=== PATIENT | male | born 1950 | race Caucasian/White ===

== ENCOUNTER 2017-07-22 10:04 | Emergency (ER) | payer OTHER ==
[~2017-07-22] VITALS: Ht 172.7 cm; Wt 90.0 kg
[~2017-07-22 10:04] MED LIST: AMLO5 PO; ASPI325T PO; ATOR80TA PO; DUONI INH; LISI20 PO; METF500 PO; METO25 PO; POLY119S PO
[2017-07-22 10:08] VITALS: BP 152/88; PULSE 70; RESP 18; TEMP 98.1; O2SAT 97
--- NOTE | 2017-07-22 10:23 | PD ---
HPI Chief Complaint: Abnormal Results Time Seen by Provider: 10:19 Travel History International Travel<30 days: No Contact w/Intl Traveler<30days: No Traveled to known affect area: No History of Present Illness HPI 66-year-old male patient with history of hypertension, COPD, previous stroke, presents to the ER today because he states that he has been constipated and not able to make any bowel movements for about a week, feels like his abdomen is distended, but denies any nausea and vomiting. He had been seen by GI 2 days ago and had lab work done and was told to come to the ER yesterday because his potassium was high and his white blood cell count was high. He denies any fevers, abdominal pain, or any other issues. Modifying Factors: None Associated Signs & Symptoms: Constipated, abdominal distention, elevated potassium and white blood cell count Risk Factors: None PFSH Past Medical History Autoimmune Disease: No Heart Rhythm Problems: No Cancer: No Cardiovascular Problems: No High Cholesterol: Yes Chest Pain: No Congestive Heart Failure: No Cerebrovascular Accident: Yes (2013 CVA) Diabetes: Yes Endocrine: Yes Genitourinary: No Hepatitis: No Hiatal Hernia: No Hypertension: Yes Immune Disorder: No Musculoskeletal: No Neurologic: Yes (STROKE 04/19/2014) Psychiatric: No Reproductive: No Respiratory: Yes (COPD) Thyroid Disease: No Past Surgical History Abdominal Surgery: No AICD: No Cardiac Surgery: No Ear Surgery: No Endocrine Surgery: No Eye Surgery: No Genitourinary Surgery: Yes (PRIAPRISM SURGERY 06/2014) Gynecologic Surgery: No Joint Replacement: No Oral Surgery: Yes (TEETH EXTRACTION) Pacemaker: No Thoracic Surgery: No Other Surgery: Yes (SPLENECTOMY) Social History Alcohol Use: No Tobacco Use: Yes Substance Use: No Allergies-Medications (Allergen,Severity, Reaction): Coded Allergies: No Known Allergies (Unverified Allergy, Unknown, 07/22/17) Reported Meds & Prescriptions Reported Meds & Active Scripts Active Miralax 119 Gm Bottle (Polyethylene Glycol) 119 Gm Powd 17 Gm PO DAILY 7 Days 17 GRAMS = 1 TABLESPOON DISSOLVED IN 4 TO 8 OUNCES OF BEVERAGE Norvasc (Amlodipine Besylate) 5 Mg Tab 5 Mg PO BID 30 Days Resp: Albuterol/Ipratropium 2.5 Mg/0.5 Mg (Albuterol/Ipratropium) 1 Amp Nebu 1 Amp INH QID-RT 30 Days Prinivil 20 mg (Lisinopril) 20 Mg Tab 20 Mg PO Q12 30 Days Metoprolol Tartrate 25 mg (Metoprolol Tartrate) 25 Mg Tab 25 Mg PO Q12 30 Days Reported Aspirin 325 Mg Tab (Aspirin) 325 Mg Tab 650 Mg PO DAILY Atorvastatin 80 mg (Atorvastatin Calcium) 80 Mg Tab 1 Tab PO HS Glucophage 500 mg (Metformin HCl) 500 Mg Tab 1,000 Mg PO DAILY@1700 Review of Systems Except as stated in HPI: all other systems reviewed are Neg Physical Exam Narrative GENERAL: Well-developed elderly white male patient currently in mild distress. Awake and oriented 3. SKIN: Focused skin assessment warm/dry. HEAD: Atraumatic. Normocephalic. EYES: Pupils equal and round. No scleral icterus. No injection or drainage. ENT: No nasal bleeding or discharge. Mucous membranes pink and moist. NECK: Trachea midline. No JVD. Supple. CARDIOVASCULAR: Regular rate and rhythm. No murmur appreciated. RESPIRATORY: No accessory muscle use. Clear to auscultation. Breath sounds equal bilaterally. GASTROINTESTINAL: Abdomen soft, non-tender, mildly distended. Hepatic and splenic margins not palpable. MUSCULOSKELETAL: No obvious deformities. No clubbing. No cyanosis. No edema. NEUROLOGICAL: Awake and alert. No obvious cranial nerve deficits. Motor grossly within normal limits. Normal speech. PSYCHIATRIC: Appropriate mood and affect; insight and judgment normal. Data Data Last Documented VS Vital Signs Date Time Temp Pulse Resp B/P (MAP) Pulse Ox O2 Delivery O2 Flow Rate FiO2 07/22/17 12:23 65 17 149/80 (103) 100 Room Air 07/22/17 10:08 98.1 Orders Orders Electrocardiogram (07/22/17 10:15) Complete Blood Count With Diff (07/22/17 10:15) Comprehensive Metabolic Panel (07/22/17 10:15) Lactic Acid Sepsis Protocol (07/22/17 10:15) Magnesium (Mg) (07/22/17 10:15) Blood Culture (07/22/17 10:15) Blood Glucose (07/22/17 10:15) Ecg Monitoring (07/22/17 10:15) Iv Access Insert/Monitor (07/22/17 10:15) Oximetry (07/22/17 10:15) Oxygen Administration (07/22/17 10:15) Abdomen, Flat & Upright (07/22/17 10:19) Ct Abd/Pel W Iv Contrast(Rout) (07/22/17 11:35) Iohexol 350 Inj (Omnipaque 350 Inj) (07/22/17 12:32) Sodium Chlorid 0.9% 500 Ml Inj (Ns 500 M (07/22/17 13:00) Labs Laboratory Tests Test 07/22/17 10:30 White Blood Count 13.0 TH/MM3 Red Blood Count 4.95 MIL/MM3 Hemoglobin 14.9 GM/DL Hematocrit 44.1 % Mean Corpuscular Volume 89.2 FL Mean Corpuscular Hemoglobin 30.2 PG Mean Corpuscular Hemoglobin Concent 33.8 % Red Cell Distribution Width 14.0 % Platelet Count 529 TH/MM3 Mean Platelet Volume 7.8 FL Neutrophils (%) (Auto) 64.9 % Lymphocytes (%) (Auto) 25.5 % Monocytes (%) (Auto) 7.2 % Eosinophils (%) (Auto) 1.8 % Basophils (%) (Auto) 0.6 % Neutrophils # (Auto) 8.4 TH/MM3 Lymphocytes # (Auto) 3.3 TH/MM3 Monocytes # (Auto) 0.9 TH/MM3 Eosinophils # (Auto) 0.2 TH/MM3 Basophils # (Auto) 0.1 TH/MM3 CBC Comment DIFF FINAL Differential Comment Blood Urea Nitrogen 8 MG/DL Creatinine 1.00 MG/DL Random Glucose 204 MG/DL Total Protein 8.0 GM/DL Albumin 4.3 GM/DL Calcium Level 9.1 MG/DL Magnesium Level 2.1 MG/DL Alkaline Phosphatase 95 U/L Aspartate Amino Transf (AST/SGOT) 21 U/L Alanine Aminotransferase (ALT/SGPT) 37 U/L Total Bilirubin 0.4 MG/DL Sodium Level 132 MEQ/L Potassium Level 4.4 MEQ/L Chloride Level 101 MEQ/L Carbon Dioxide Level 24.5 MEQ/L Anion Gap 7 MEQ/L Estimat Glomerular Filtration Rate 74 ML/MIN Lactic Acid Level 2.0 mmol/L MDM Medical Decision Making Medical Screen Exam Complete: Yes Emergency Medical Condition: Yes Medical Record Reviewed: Yes Interpretation(s) Laboratory Tests Test 07/22/17 10:30 White Blood Count 13.0 TH/MM3 (4.0-11.0) Platelet Count 529 TH/MM3 (150-450) Neutrophils # (Auto) 8.4 TH/MM3 (1.8-7.7) Random Glucose 204 MG/DL (74-106) Sodium Level 132 MEQ/L (136-145) Estimat Glomerular Filtration Rate 74 ML/MIN (>89) Last 24 hours Impressions Abdomen X-Ray 07/22/17 1019 Signed Impressions: Service Date/Time: Saturday, July 22, 2017 10:57 - CONCLUSION: No dilated loops of small or large bowel. Dieter Salgado MD Differential Diagnosis Constipation versus obstruction versus ileus versus dehydration versus metabolic issues Narrative Course CAT scan reveals signs of colitis but was otherwise unremarkable. Colonoscopy is suggested as follow-up. Lab work did not indicate high potassium. Renal function was fairly unremarkable. At this point, my plan would be to release him with follow-up to GI. Return for any worsening in symptoms as necessary. The plan has been discussed with him he states understanding. Diagnosis Primary Impression: Colitis Disposition: DISCHARGE HOME Condition: Stable Basia Yanes MD Jul 22, 2017 10:23
[2017-07-22 10:41] VITALS: O2SAT 96
[2017-07-22 10:55] LABS: AUTOMATED NEUTROPHIL # 8.4 TH/MM3 (1.8-7.7); BASOPHIL # 0.1 TH/MM3 (0-0.2); BASOPHIL % 0.6 % (0.0-2.0); EOSINOPHIL # 0.2 TH/MM3 (0-0.4); EOSINOPHIL % 1.8 % (0.0-4.0); HEMATOCRIT 44.1 % (39.0-51.0); HEMOGLOBIN 14.9 GM/DL (13.0-17.0); LYMPH % 25.5 % (9.0-44.0); LYMPHOCYTE # 3.3 TH/MM3 (1.0-4.8); MEAN CELL VOLUME 89.2 FL (80.0-100.0); MEAN CORPUSCULAR HEMOGLOBIN 30.2 PG (27.0-34.0); MEAN CORPUSCULAR HGB CONC 33.8 % (32.0-36.0); MEAN PLATELET VOLUME 7.8 FL (7.0-11.0); MONO % 7.2 % (0.0-8.0); MONOCYTE # 0.9 TH/MM3 (0-0.9); NEUT % 64.9 % (16.0-70.0); PLATELET COUNT 529 TH/MM3 (150-450); RED BLOOD COUNT 4.95 MIL/MM3 (4.50-5.90)
[2017-07-22 11:15] LABS: ALBUMIN 4.3 GM/DL (3.4-5.0); AST (GOT) 21 U/L (15-37); BICARBONATE 24.5 MEQ/L (21.0-32.0); BLOOD UREA NITROGEN 8 MG/DL (7-18); CALCIUM 9.1 MG/DL (8.5-10.1); CHLORIDE 101 MEQ/L (98-107); GLOMERULAR FILTRATION RATE 74 ML/MIN (>89); GLUCOSE,RANDOM 204 MG/DL (74-106); MAGNESIUM 2.1 MG/DL (1.5-2.5); SODIUM (NA) 132 MEQ/L (136-145)
[2017-07-22 11:16] LABS: ALT (GPT) 37 U/L (12-78)
[2017-07-22 11:18] LABS: ALKALINE PHOSPHATASE 95 U/L (45-117); TOTAL BILIRUBIN ADULT 0.4 MG/DL (0.2-1.0)
--- NOTE | 2017-07-22 11:31 | RADRPT ---
EXAM DATE/TIME: 07/22/2017 10:57 [facility] COMPARISON: No previous studies available for comparison. INDICATIONS : Constipation with high potassium level. MEDICAL HISTORY : None. SURGICAL HISTORY : Splenectomy. ENCOUNTER: Initial ACUITY: 1 week PAIN SCORE: 0/10 LOCATION: Bilateral abdomen FINDINGS: Supine and upright views of the abdomen were performed. The abdominal bowel gas pattern is normal. No air fluid levels are seen. No abnormal masses, calcifications, or organomegaly is seen. The visu alized lower lungs are clear. No evidence of free intraperitoneal gas. The osseous structures are u nremarkable. CONCLUSION: No dilated loops of small or large bowel. Dieter Salgado MD on July 22, 2017 at 11:28 Board Certified Radiologist. This report was verified electronically.
[2017-07-22 12:23] VITALS: BP 149/80; PULSE 65; RESP 17; O2SAT 100
[2017-07-22] MEDS ORDERED: IOHEXOL 350 MG/ML 10 ML VIAL (for RAD DIAG) IVCONTRAST ONE (12:32)
--- NOTE | 2017-07-22 12:43 | RADRPT ---
EXAM DATE/TIME: 07/22/2017 12:13 [facility] COMPARISON: No previous studies available for comparison. INDICATIONS : Constipation and abdominal distention for 1 week. IV CONTRAST: 96 cc Omnipaque 350 (iohexol) IV ORAL CONTRAST: No oral contrast ingested. RADIATION DOSE: 14.71 CTDIvol (mGy) MEDICAL HISTORY : Cerebrovascular disease. Hypertension. SURGICAL HISTORY : Splenectomy. ENCOUNTER: Initial ACUITY: 1 week PAIN SCALE: 0/10 LOCATION: anterior TECHNIQUE: Volumetric scanning of the abdomen and pelvis was performed. Using automated exposure control and ad justment of the mA and/or kV according to patient size, radiation dose was kept as low as reasonably achievable to obtain optimal diagnostic quality images. DICOM format image data is available electro nically for review and comparison. FINDINGS: LOWER LUNGS: The visualized lower lungs are clear. LIVER: Homogeneous fatty density without lesion. There is no dilation of the biliary tree. No calcified ga llstones. SPLEEN: Normal size without lesion. PANCREAS: Within normal limits. KIDNEYS: Normal in size and shape. There is no mass, stone or hydronephrosis. ADRENAL GLANDS: Within normal limits. VASCULAR: Atherosclerotic abdominal aorta with patchy mural thrombus. The vessel is mildly aneurysmal at approx imately 4.2 cm. Common iliac arteries measure 18 mm on the right and 17 mm on the last. No evidence o f leak or impending rupture. BOWEL/MESENTERY: There is mild colitis of the left side of the colon beginning at the level of the splenic flexure and extending to the mid sigmoid. No perceptible mass but there are numerous adjacent lymph nodes in the left abdomen measuring up to 12 mm in greatest short axis dimension. These appear pathologic. ABDOMINAL WALL: Within normal limits. RETROPERITONEUM: There is no lymphadenopathy. BLADDER: No wall thickening or mass. REPRODUCTIVE: Within normal limits. INGUINAL: There is no lymphadenopathy or hernia. MUSCULOSKELETAL: Within normal limits for patient age. CONCLUSION: 1. Mild long segment colitis of the left side of the colon as above. This is nonspecific but given th e adjacent lymphadenopathy, presumably infectious or inflammatory. No mass lesion demonstrated and gi jame the fairly diffuse nature of the inflammatory changes, neoplasm/malignancy considered unlikely bu t colonoscopy is suggested when clinically feasible if not done recently. There are some scattered di verticula but the features are not typical of diverticulitis. 2. Fatty liver. 3. Atherosclerotic and aneurysmal abdominal aorta. The vessel measures up to 4.2 cm. Zain Myers MD on July 22, 2017 at 12:35 Board Certified Radiologist. This report was verified electronically.
[2017-07-22] MEDS ORDERED: SODIUM CHLORID 0.9% 500 ML INJ 500 ML IV ONE (13:00)
[2017-07-22 13:40] VITALS: BP 141/62
--- NOTE | 2017-07-23 17:17 | EKG ---
Date Performed: 07/22/2017 Time Performed: 12:05:10 PTAGE: 66 years EKG: SINUS BRADYCARDIA WITH FIRST DEGREE AV BLOCK Since the previous tracing, no significant alix nge noted ABNORMAL ECG PREVIOUS TRACING : 06/28/2014 17.23 DOCTOR: Je Jack Interpretating Date/Time 07/23/2017 17:16:11
== END 2017-07-22 13:43 | disposition home or self-care (01) ==
LOC: NEPC 10:04
DX: K52.9 Noninfective gastroenteritis and colitis, unspecified (principal); R94.31 Abnormal electrocardiogram [ECG] [EKG]; I10 Essential (primary) hypertension; J44.9 Chronic obstructive pulmonary disease, unspecified; I67.9 Cerebrovascular disease, unspecified; E78.00 Pure hypercholesterolemia, unspecified; E11.9 Type 2 diabetes mellitus without complications; Z86.73 Personal history of transient ischemic attack (TIA), and cerebral infarction without residual deficits; Z72.0 Tobacco use
CPT/HCPCS: 74019; 74177; 80053; 83605; 83735; 85025; 87040; 93005; 96360; 99285; J7040; Q9967